=== PATIENT | male | born 1990 | race Two or more races ===

== ENCOUNTER 2017-09-01 21:27 | Emergency (ER) | END 2017-09-02 01:13 | disposition home or self-care (01) ==

== ENCOUNTER 2017-12-11 16:23 | Emergency (ER) | END 2017-12-11 18:25 | disposition home or self-care (01) ==

== ENCOUNTER 2017-12-22 22:35 | Emergency (ER) | END 2017-12-23 00:07 | disposition home or self-care (01) ==

== ENCOUNTER 2018-01-22 13:07 | Emergency (ER) | END 2018-01-22 16:32 | disposition left against medical advice (07) ==

== ENCOUNTER 2018-03-01 01:09 | Emergency (ER) | END 2018-03-01 04:40 | disposition home or self-care (01) ==

== ENCOUNTER → 2019-01-28 | Emergency (ER) | payer OTHER ==
[~2019-01-28] VITALS: Ht 160 cm; Wt 80.0 kg
[~2019-01-28] MED LIST: ALPR0.25 PO; ALPR1TAB2 PO; ALPR2TAB PO; IBUP-1542 PO; IBUPROFEN 600 MG TAB PO ONE; TRAM50TA2 PO; traMADol 50 MG TAB PO ONE
[2019-01-28 17:39] VITALS: BP 136/69; PULSE 78; RESP 18; Ht 160 cm; Wt 80.0 kg
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
== END | disposition home or self-care (01) ==
LOC: FTE 17:31
DX: M54.2 Cervicalgia (principal); F17.210 Nicotine dependence, cigarettes, uncomplicated
CPT/HCPCS: 72040; Z7502; Z7610